=== PATIENT | male | born 1985 | race Two or more races ===

== ENCOUNTER 2017-07-05 15:24 | Emergency (ER) | payer OTHER ==
[~2017-07-05] VITALS: Ht 177.8 cm; Wt 99.8 kg
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
[2017-07-05] MEDS ORDERED: ROBAXIN500 MG PO (17:25)
[2017-07-05] MEDS ORDERED: IBUPROFEN600 MG ORAL (17:25)
[2017-07-05] MEDS ORDERED: Bacitracin Oint UD TOPIC ONE (17:30)
[2017-07-05 17:41] VITALS: BP 137/97
--- NOTE | 2017-07-06 10:40 | Diagnostic Imaging Report ---
Indication: PAIN Technique: 2 views of the left hip Comparison: Findings: No acute fractures. No dislocations. Joint spaces are preserved. Normal mineralization. Impression: No acute process
--- NOTE | 2017-07-06 10:42 | Diagnostic Imaging Report ---
Indication: PAIN Technique: 3 views of the left shoulder Comparison: none Findings: No acute fractures. No dislocations. Joint spaces are preserved. Impression:Negative
== END 2017-07-05 18:30 | disposition home or self-care (01) ==
LOC: EDBD 15:24 → EMR 18:14
DX: S70.02XA Contusion of left hip, initial encounter (principal); S40.012A Contusion of left shoulder, initial encounter; S50.812A Abrasion of left forearm, initial encounter; V43.52XA Car driver injured in collision with other type car in traffic accident, initial encounter; Y92.414 Local residential or business street as the place of occurrence of the external cause
CPT/HCPCS: 73502; 99284